=== PATIENT | male | born 1950 | race Caucasian/White ===

== ENCOUNTER → 2025-02-07 | Outpatient (CLI) | payer MEDICARE, BC, SELFPAY ==
[2025-02-07 08:08] LABS: Collection Type, Urine Clean Catch; Squamous Epithelial Cell,Urine 0 /hpf (0-5)
[2025-02-07 08:36] LABS: Bilirubin,Urine Negative (Negative); Blood,Urine Negative (Negative); Clarity,Urine Clear (Clear/Hazy); Color,Urine Lt-Yellow (Lt Yel-Yel); Glucose, Urine Negative (Negative); Ketones,Urine Negative (Negative); Leukocyte Esterase,Urine Negative (Negative); Nitrite,Urine Negative (Negative); Protein,Urine Negative (Neg - Trace); RBC,Urine 4 /hpf (0-3); Specific Gravity,Urine 1.024 (1.001-1.035); Urobilinogen,Urine Negative mg/dL (0.0-1.0); WBC,Urine 1 /hpf (0-5)
[2025-02-07 08:41] LABS: Basophils % (Auto) 1 % (0-2.5); Eosinophils # (Auto) 0.2 Thou/mm3 (0.0-0.5); Eosinophils % (Auto) 3 % (0-10); Hematocrit 43.1 % (41.0-53.0); Hemoglobin 14.5 g/dL (13.5-16.0); Immature Granulocytes % (Auto) 0 % (0-0); Immature Granulocytes Auto 0.01 Thou/mm3 (0.00-0.00); Lymphocytes # (Auto) 1.7 Thou/mm3 (1.0-4.8); Lymphocytes % (Auto) 25 % (10-50); Mean Corpuscular HGB Conc 33.6 g/dl (31.0-37.0); Mean Corpuscular Hemoglobin 30.8 pg (25.0-35.0); Mean Corpuscular Volume 92 fL (80-100); Monocytes # (Auto) 0.8 Thou/mm3 (0.0-0.8); Monocytes % (Auto) 12 % (0-12); Neutrophils # (Auto) 4.2 Thou/mm3 (1.8-7.7); Neutrophils % (Auto) 60 % (37-80); Nucleated Red Blood Cell % 0 /100 WBC (0); Platelet Count 276 Thou/mm3 (140-440); RDW Standard Deviation 46.3 fL (35.1-43.9); Red Blood Count 4.71 Miln/mm3 (4.50-5.90); White Blood Count 6.9 Thou/mm3 (3.8-10.6)
[2025-02-07 08:48] LABS: PSA Medicare Annual Scrn 0.01 ng/mL (0-4.00)
[2025-02-07 08:59] LABS: Alanine Aminotransferase 25 U/L (10-49); Albumin, Serum 4.5 gm/dL (3.4-4.8); Albumin/Globulin Ratio 1.7 (1.2-2.2); Alkaline Phosphatase 67 U/L (46-116); Anion Gap 7 (7-16); Aspartate Amino Transferase 24 U/L (0-34); BUN/Creatinine Ratio 16 Ratio (12-20); Bilirubin,Total 0.7 mg/dL (0.3-1.2); Blood Urea Nitrogen 16 mg/dL (9-23); Calcium 9.9 mg/dL (8.3-10.6); Calcium (Corrected) 9.9 mg/dL (8.5-10.1); Cardiac Risk Estimate 3.2 RATIO (4.0-6.7); Chloride 104 mMol/L (98-107); Cholesterol 197 mg/dL (132-200); Globulin 2.7 gm/dL (2.3-3.5); Glucose 93 mg/dL (74-106); HDL Cholesterol 61 mg/dL (40-60); LDL Cholesterol,Calculated 121 mg/dL (0-130); Osmolality,Calculated 282 (275-295); Potassium 4.2 mMol/L (3.4-5.1); Sodium 141 mMol/L (136-145); Thyroid Stimulating Hormone 2.41 uIU/mL (0.55-4.78); Total Protein 7.2 gm/dL (5.7-8.2); Triglycerides 73 mg/dL (30-150); eGFR > 60 See Note
== END | disposition home or self-care (01) ==
LOC: COPL 07:13
PROVIDERS: PCP Internal Medicine; Referring Provider Internal Medicine; Visit Provider Internal Medicine
DX: Z00.00 Encounter for general adult medical examination without abnormal findings (principal); I10 Essential (primary) hypertension; E78.5 Hyperlipidemia, unspecified; I73.00 Raynaud's syndrome without gangrene; Z85.46 Personal history of malignant neoplasm of prostate
CPT/HCPCS: 36415; 80053; 80061; 81001; 84153; 84443; 85025; G0103

== ENCOUNTER → 2025-02-13 | Outpatient (CLI) | payer MEDICARE, BC, SELFPAY ==
[2025-02-13 08:40] LABS: OBS Performed By LAB; OBS QC OK? Yes
[2025-02-13 14:18] LABS: OBS Developer Lot # 551749
[2025-02-13 14:19] LABS: Occult Blood, Stool Negative (Negative); Occult Blood, Stool #2 Negative (Negative); Occult Blood, Stool #3 Negative (Negative)
== END | disposition home or self-care (01) ==
LOC: SLDO 08:36
PROVIDERS: Referring Provider Internal Medicine; Visit Provider Urology
DX: Z12.11 Encounter for screening for malignant neoplasm of colon (principal)
CPT/HCPCS: 82270

== ENCOUNTER → 2025-02-28 | Outpatient (CLI) | payer MEDICARE, BC, SELFPAY ==
--- NOTE | 2025-02-28 14:31 | XR_ITS ---
EXAMINATION: Ankle, right 3 views . Technique: Ankle AP, oblique, lateral 3 views Date and time of exam: February 28, 2025 1444 hours INDICATIONS: Right ankle pain beginning one month ago. FINDINGS: Moderate osteopenia No fracture or dislocation. Mild osteoarthritis tibiotalar joint IMPRESSION: Mild osteoarthritis tibiotalar joint
== END | disposition home or self-care (01) ==
LOC: CDIM 14:19
PROVIDERS: PCP Internal Medicine; Referring Provider Internal Medicine; Visit Provider Internal Medicine
DX: M19.071 Primary osteoarthritis, right ankle and foot (principal)
CPT/HCPCS: 73610

== ENCOUNTER → 2025-08-11 | Outpatient (CLI) | payer MEDICARE, BC, SELFPAY ==
[2025-08-11 11:42] LABS: Albumin, Serum 4.6 gm/dL (3.4-4.8); Anion Gap 8 (7-16); BUN/Creatinine Ratio 13 Ratio (12-20); Blood Urea Nitrogen 14 mg/dL (9-23); Calcium 9.9 mg/dL (8.3-10.6); Calcium (Corrected) 9.9 mg/dL (8.5-10.1); Carbon Dioxide 27.6 mMol/L (20.0-31.0); Chloride 102 mMol/L (98-107); Creatinine (Component) 1.1 mg/dL (0.6-1.3); Glucose 89 mg/dL (74-106); Osmolality,Calculated 275 (275-295); Phosphorous 3.4 mg/dL (2.4-5.1); Potassium 4.4 mMol/L (3.4-5.1); Sodium 138 mMol/L (136-145); eGFR > 60 See Note
[2025-08-11 11:54] LABS: Prostate Specific Antigen < 0.10 ng/mL (0-4.00)
== END | disposition home or self-care (01) ==
LOC: COPL 10:33
PROVIDERS: PCP Internal Medicine; Referring Provider Internal Medicine; Visit Provider Internal Medicine
DX: I10 Essential (primary) hypertension (principal)
CPT/HCPCS: 36415; 80069; 84153